=== PATIENT | male | born 1995 | race Hispanic/Latino ===

== ENCOUNTER 2018-12-10 11:52 | Emergency (ER) | payer SELFPAY ==
--- NOTE | 2018-12-10 14:58 | CT ---
CT CHEST WITHOUT IV CONTRAST: HISTORY: Injury. Left rib and back pain. Shortness of breath. FINDINGS: Absence of IV contrast reduces the sensitivity of the exam, particular for evaluation of mediastinal, hilar, and vascular structures. There is evidence of old granulomatous disease. No pleural or pericardial effusions are seen. No pn eumothoraces or lung contusions are identified. The bony structures are intact. No fracture or subl uxation is seen in the thoracic spine. IMPRESSION: No significant abnormalities are identified. POS: [facility]
== END 2018-12-10 15:23 | disposition home or self-care (01) ==
LOC: ERS 11:52
DX: S20.212A Contusion of left front wall of thorax, initial encounter (principal); Y04.8XXA Assault by other bodily force, initial encounter
CPT/HCPCS: 71250